=== PATIENT | female | born 1955 | race Caucasian/White ===

== ENCOUNTER 2018-04-17 15:37 | Inpatient (IN) | payer BC ==
[~2018-04-17] VITALS: Ht 167.6 cm; Wt 48.5 kg
[2018-04-17] MEDS ORDERED: OMEP20CA10 PO (15:47)
[2018-04-17] MEDS ORDERED: POTA10CA42 PO (15:47)
[2018-04-17] MEDS ORDERED: ONDA4TAB5 PO (15:47)
[2018-04-17] MEDS ORDERED: FURO-151 PO (15:47)
[2018-04-17] MEDS ORDERED: ONDANSETRON HCL 4MG/2ML INJ IV STA (16:15)
[2018-04-17] MEDS ORDERED: ALBUTEROL (0.083%) 2.5MG/3ML NEB HHN STA (16:15)
[2018-04-17 16:47] LABS: HEMATOCRIT. 38.3 % (36.0-48.0); MEAN CORPUSCULAR HEMOGLOBIN 28.6 pg (28.0-32.0); MEAN CORPUSCULAR VOLUME 84.4 fL (81.0-99.0); MEAN PLATELET VOLUME 7.7 fl (7.4-10.4); PLATELET 615 x1000/uL (130-400); RED BLOOD CELL COUNT 4.54 mill/uL (4.2-5.4); RED CELL DISTRIBUTION WIDTH 15.2 % (11.6-14.6)
[2018-04-17 16:53] LABS: CHLORIDE 84 mEq/L (98-107)
[2018-04-17 16:55] LABS: INR 1.1; PROTHROMBIN TIME 10.8 sec (9.1-11.1)
[2018-04-17 17:26] LABS: PLATELET ESTIMATE INCREASED
[2018-04-17] MEDS ORDERED: SODIUM CHLORIDE 0.9% 1,000 ML IV ONE (19:15)
[2018-04-17] MEDS ORDERED: LIDOCAINE 1%/EPI 1:100,000 10 ML VIAL IJ ONE (19:30)
[2018-04-17] MEDS ORDERED: LIDOCAINE HCL/EPINEPHRINE 1%-EPI 1:100,000 20 ML VIAL IJ SCH (20:20)
[2018-04-17] MEDS ORDERED: IOHEXOL-350 100 ML BOTTLE ONE (20:27)
[2018-04-17] MEDS ORDERED: PIPERACILLIN/TAZ 3.375G PREMIX 50 ML IV ONE (20:45)
[2018-04-17] MEDS ORDERED: ONDANSETRON HCL 4MG/2ML INJ IV ONE (20:45)
[2018-04-17] MEDS ORDERED: VANCOMYCIN 1 G PREMIX 200 ML IV ONE (20:45)
[2018-04-17] MEDS ORDERED: IPRATROPIUM/ALBUTEROL 0.5-3(2.5)MG/3ML NEB INH PRN (22:15)
[2018-04-17] MEDS ORDERED: MAGNESIUM/ALUMINUM HYDROXIDE/SIMETHICONE 30ML UDC PO PRN (22:15)
[2018-04-17] MEDS ORDERED: GUAIFENESIN 200MG/10ML SUGAR FREE UDC PO PRN (22:15)
[2018-04-17 23:51] VITALS: BP 99/44
[2018-04-18] VITALS (12 sets, daily range): BP systolic 89–132; BP diastolic 51–81
[2018-04-18] MEDS: IPRATROPIUM/ALBUTEROL 0.5-3(2.5)MG/3ML NEB HHN SCH ×6 (00:18→20:24)
[2018-04-18] MEDS: SODIUM CHLORIDE 0.9% INJ 3ML FLUSH IVF SCH ×3 (06:00→21:07)
[2018-04-18] MEDS ORDERED: SODIUM BICARBONATE 4% (2.4MEQ) 5ML VIAL IV ONE (13:37)
[2018-04-18] MEDS ORDERED: LIDOCAINE HCL 1% 20ML VIAL (Pyxis) INJ ONE (13:37)
[2018-04-19] VITALS (13 sets, daily range): BP systolic 85–107; BP diastolic 44–68
[2018-04-19] MEDS: ACETAMINOPHEN 325MG TABLET PO PRN ×2 (00:33→12:47)
[2018-04-19] MEDS: IPRATROPIUM/ALBUTEROL 0.5-3(2.5)MG/3ML NEB HHN SCH ×4 (00:38→23:10)
[2018-04-19] MEDS ORDERED: DILTIAZEM HCL 5MG/ML 5ML VIAL IV NR (01:45)
[2018-04-19] MEDS: ONDANSETRON HCL 4MG/2ML INJ IV PRN (05:17)
[2018-04-19] MEDS: SODIUM CHLORIDE 0.9% INJ 3ML FLUSH IVF SCH ×3 (05:17→21:40)
[2018-04-19 05:42] LABS: CHLORIDE 90 mEq/L (98-107)
[2018-04-19 05:54] LABS: PHOSPHORUS 2.8 mg/dL (2.5-4.9)
[2018-04-20] VITALS (9 sets, daily range): BP systolic 96–107; BP diastolic 46–75
[2018-04-20 05:59] LABS: CHLORIDE 88 mEq/L (98-107)
[2018-04-20] MEDS: SODIUM CHLORIDE 0.9% INJ 3ML FLUSH IVF SCH (06:58)
[2018-04-20] MEDS: ONDANSETRON HCL 4MG/2ML INJ IV PRN (08:18)
== END 2018-04-20 15:50 | disposition home or self-care (01) | DRG 180 ==
LOC: ER 15:37 → EDBEDREQ 20:20 → 3WST 22:06 → EDBEDREQ 22:09 → EDBEDREQSVC 22:09 → EDBEDREQTM 22:09 → ENRESERV 23:08 → 3WST 04-18 04:39
PROVIDERS: ADMIT Internal Medicine; ATTEND Internal Medicine
PROC: 0W9G3ZZ Drainage of Peritoneal Cavity, Percutaneous Approach (ICD-10-PCS; principal; 2018-04-17)
PROC: 0W9B3ZZ Drainage of Left Pleural Cavity, Percutaneous Approach (ICD-10-PCS; 2018-04-18)
DX: J91.0 Malignant pleural effusion (principal); E43 Unspecified severe protein-calorie malnutrition; J96.00 Acute respiratory failure, unspecified whether with hypoxia or hypercapnia; R18.8 Other ascites; E87.1 Hypo-osmolality and hyponatremia; C78.7 Secondary malignant neoplasm of liver and intrahepatic bile duct; Z68.1 Body mass index [BMI] 19.9 or less, adult; C78.00 Secondary malignant neoplasm of unspecified lung; C79.89 Secondary malignant neoplasm of other specified sites; M21.611 Bunion of right foot; R79.89 Other specified abnormal findings of blood chemistry; R74.0 Nonspecific elevation of levels of transaminase and lactic acid dehydrogenase [LDH]; R58 Hemorrhage, not elsewhere classified; M21.612 Bunion of left foot; C50.919 Malignant neoplasm of unspecified site of unspecified female breast; L08.9 Local infection of the skin and subcutaneous tissue, unspecified; D72.829 Elevated white blood cell count, unspecified; I48.0 Paroxysmal atrial fibrillation; Z98.82 Breast implant status; Z79.899 Other long term (current) drug therapy; Z90.10 Acquired absence of unspecified breast and nipple
CPT/HCPCS: 32555; 36415; 71045; 71275; 76705; 80048; 83735; 83880; 84100; 84484; 93005; 93970; 94640; 96365; 96375; 99291; J2405; J2543; J3370; J3490; J7030; J7611; J7620; Q9967